=== PATIENT | female | born 1975 | race Caucasian/White ===

== ENCOUNTER 2019-03-23 11:31 | Emergency (ER) | payer OTHER ==
[~2019-03-23] VITALS: Ht 165.1 cm; Wt 61.7 kg
[2019-03-23] MEDS ORDERED: Keflex500 MG PO (14:35)
[2019-03-23] MEDS ORDERED: Roxicodone5 MG PO (14:36)
[2019-03-23] MEDS ORDERED: ONDA4ODT MM (14:37)
== END 2019-03-23 15:08 | disposition home or self-care (01) ==
LOC: ER 11:31
DX: S62.615B Displaced fracture of proximal phalanx of left ring finger, initial encounter for open fracture (principal); F17.210 Nicotine dependence, cigarettes, uncomplicated; W23.1XXA Caught, crushed, jammed, or pinched between stationary objects, initial encounter
CPT/HCPCS: 12001; 26755; 73110; 73130; 90471; 90714; 96372-59; 96374-59; 96375-59; 99283-25; J0690; J1885; J3010

== ENCOUNTER 2019-03-24 06:23 | Day surgery (SDC) | payer OTHER ==
[~2019-03-24 06:23] MED LIST: Keflex500 MG PO; ONDA4ODT MM; Roxicodone5 MG PO
--- NOTE | 2019-03-24 07:13 | NUR ---
Ambulatory in Day Surgery History, Chart, Medications and Allergies reviewed before start of procedure. Patient confirms NPO status and agrees with scheduled surgery. Patient States Post-Procedure ride home has been arranged.
--- NOTE | 2019-03-24 11:26 | NUR ---
Patient up to Ambulate independently. Gait steady. Discharge instructions reviewed with patient. Patient verbalizes understanding. Copy given to patient to take home. Patient States Post-Procedure ride home has been arranged. Discharged via wheelchair to private car for ride home.
== END 2019-03-24 22:44 | disposition home or self-care (01) ==
LOC: ORD 06:23 → ORSCMMR 06:23 → ORD 07:30
PROVIDERS: Orthopaedic Surgery
PROC: 0PSV04Z Reposition Left Finger Phalanx with Internal Fixation Device, Open Approach (ICD-10-PCS; principal; 2019-03-24 07:30)
PROC: 0PHV04Z Insertion of Internal Fixation Device into Left Finger Phalanx, Open Approach (ICD-10-PCS; principal; 2019-03-24 07:30)
DX: S62.615B Displaced fracture of proximal phalanx of left ring finger, initial encounter for open fracture (principal); W23.1XXA Caught, crushed, jammed, or pinched between stationary objects, initial encounter; F17.210 Nicotine dependence, cigarettes, uncomplicated
CPT/HCPCS: A9270-GY; J0690; J1100; J1885; J2250; J2405; J2704; J2765; J3010; J7120